=== PATIENT | male | born 2000 | race African-American/Black ===

== ENCOUNTER 2024-11-27 19:57 | Emergency (ER) | payer SELFPAY | END 2024-11-27 20:33 | disposition home or self-care (01) | LOC: VM.ED 19:57 | DX: S61.411A Laceration without foreign body of right hand, initial encounter (principal); W22.8XXA Striking against or struck by other objects, initial encounter; Y92.219 Unspecified school as the place of occurrence of the external cause | CPT/HCPCS: 73130-RT; 99282; 99283 ==